=== PATIENT | female | born 1990 | race Caucasian/White ===

== ENCOUNTER 2018-02-16 10:20 | Inpatient (IN) | payer OTHER ==
[~2018-02-16] VITALS: Ht 172.7 cm; Wt 83.0 kg
[2018-02-17] MEDS ORDERED: PNV 29-1 TABLE1 EACH PO (06:41)
[2018-02-17] MEDS ORDERED: LEVOTHYROXINE0.5 GM PO (06:41)
--- NOTE | 2018-02-18 08:54 | PR ---
[facility] [address] [facility] [place], [place] [address] Signed PP Progress Notes Datetime Report Generated by CPN: 02/18/2018 08:54 SUBJECTIVE: [id number] Pain: Within normal limits Vital Signs: [id number] Vital Signs: Reviewed; Within Normal Limits EXAM: [id number] Cardiovascular: Not Done Respiratory: Not Done Abdomen/Uterus: Abnormal Lochia: Normal Vulva/Perineum: Not Done Breasts: Not Done CVA Tenderness: Not Done Extremities: Normal Incision: Not Applicable Progress: Normal Exam Comments: Fundus firm, NT @ U-1. H/H 12.2/35.2, WBC 16.4, 169k IMPRESSION/PLAN/PROCEDURES: [id number] Impression: Normal progression Plan: Discharge Procedures: None Progress Notes: Doing well. She desires D/C. Signing Physician: Yenni Mercado MD Copies: ~ *Electronically Signed* 02/18/18 0854 YENNI MERCADO MD PATIENT NAME: REGINO BATISTA PROGRESS NOTE DATE OF : 89 PHYSICIAN: YENNI MERCADO MD RPT #: [id number] REPORT IS CONFIDENTIAL AND NOT TO BE RELEASED WITHOUT AUTHORIZATION
== END 2018-02-18 15:00 | disposition home or self-care (01) | DRG 775 ==
LOC: FBC 02-17 05:12
PROVIDERS: ADMIT Obstetrics & Gynecology
PROC: 10E0XZZ Delivery of Products of Conception, External Approach (ICD-10-PCS; principal; 2018-02-17)
PROC: 10907ZC Drainage of Amniotic Fluid, Therapeutic from Products of Conception, Via Natural or Artificial Opening (ICD-10-PCS; 2018-02-17)
PROC: 3E0P7VZ Introduction of Hormone into Female Reproductive, Via Natural or Artificial Opening (ICD-10-PCS; 2018-02-17)
PROC: 0W8NXZZ Division of Female Perineum, External Approach (ICD-10-PCS; 2018-02-17)
DX: O48.0 Post-term pregnancy (principal); O99.284 Endocrine, nutritional and metabolic diseases complicating childbirth; E03.9 Hypothyroidism, unspecified; O75.89 Other specified complications of labor and delivery; O69.1XX0 Labor and delivery complicated by cord around neck, with compression, not applicable or unspecified; O66.0 Obstructed labor due to shoulder dystocia; Z79.899 Other long term (current) drug therapy; Z3A.40 40 weeks gestation of pregnancy; Z37.0 Single live birth
CPT/HCPCS: 36415; 85027; J2210; J2550; J2590; J3010; J7120

== ENCOUNTER 2019-07-05 06:45 | Day surgery (SDC) | payer OTHER ==
[~2019-07-05] VITALS: Ht 172.7 cm; Wt 69.4 kg
--- NOTE | ~2019-07-05 | OR ---
[facility] [address] [facility] [place], [place] [address] Draft DATE OF OPERATION: 07/05/2019 SURGEON: Yenni Mercado MD PREOPERATIVE DIAGNOSIS: Missed . POSTOPERATIVE DIAGNOSIS: Missed , pending pathology. PROCEDURE: Suction D and C. ANESTHESIA: General LMA. ESTIMATED BLOOD LOSS: 50 mL. DRAINS: None. INDICATIONS AND FINDINGS: The patient is a 28-year-old female, 2, para 1, who is 11 weeks 3 days by prior ultrasound, but was found to have a missed on her ultrasound yesterday and with a fetus measuring 8 weeks 5 days. After discussion of her options, she elected to proceed with D and C. At the time of surgery, her uterus was 10-12 week size. It was retroverted, soft. The cervix was closed. There was a large amount of tissue within the uterus. DESCRIPTION OF PROCEDURE: The patient was prepped and draped in the dorsal lithotomy position. An open-sided speculum was placed and the posterior lip of the cervix was grasped with a single-tooth tenaculum. The endocervical canal was then dilated to a #10 dilator. At that point, a kidney stone forceps was introduced with removal of some of the placental type tissue. The #10 curved suction curette was then introduced and suction removed some of the tissue, but when this was extracted, there was some tissue presenting at the os as well. The kidney forceps was reintroduced and a large amount of tissue was then removed just with the use of forceps. Suction curettage was then repeated again with a small amount of tissue found. Sharp curettage was then done with a minimal amount of tissue found. PATIENT NAME: REGINO BATISTA OPERATIVE REPORT DATE OF : 89 REPORT #: [id number] PHYSICIAN: YENNI MERCADO MD PCP: YENNI MERCADO MD REPORT IS CONFIDENTIAL AND NOT TO BE RELEASED WITHOUT AUTHORIZATION [facility] [address] [facility] [place] [place] [address] Draft The cavity also felt smooth and contracted. At that point, the procedure was terminated. She was having minimal bleeding from the cervix. She was bleeding however from the left posterior tenaculum imani. This did not respond to pressure and a oqmqaf-[id number]-qowfe suture of 0 chromic was placed with good hemostasis. At this point, the procedure was terminated. She was taken to the recovery room in good condition. All sponge and needle counts were correct. MD DEVON Peres/MODL /[id number] Copies: ~ PATIENT NAME: REGINO BATISTA OPERATIVE REPORT DATE OF : 89 REPORT #: [id number] PHYSICIAN: YENNI MERCADO MD PCP: YENNI MERCADO MD REPORT IS CONFIDENTIAL AND NOT TO BE RELEASED WITHOUT AUTHORIZATION
[~2019-07-05 06:45] MED LIST: LEVOTHYROXINE0.5 GM PO; PNV 29-1 TABLE1 EACH PO
--- NOTE | 2019-07-05 08:36 | NUR ---
CRISSY 0830: PT REQUESTS TO GET UP AND USE THE RESTROOM. SHE IS HELPED UP OOB WITH STANDBY ASSIST TO THE RESTROOM AND BACK TO HER ROOM.
--- NOTE | 2019-07-05 10:07 | NUR ---
07/05/19 Katty Whyte 0487 PT ARRIVED IN PACU NON RESPONSIVE TO VERBAL/TACTILE STIMULI WITH OPA IN PLACE. CHIN LIFT HELD BY RN. 0946 PT REACTIVE. OPA REMOVED. DR AT BEDSIDE. 1000 OXYGEN REMOVED. SATS 100% ON RA. TAKING SIPS OF WATER.
--- NOTE | 2019-07-05 10:21 | NUR ---
PT IS BACK TO DS FROM PACU. SHE IS AWAKE, SIGNIFICANT OTHER AT THE BEDSIDE. WATER ON BEDSIDE TABLE. CALL LIGHT WITHIN REACH. NO ADDITIONAL NEEDS AT THIS TIME. PT DENIES WANTING ANYTHING TO EAT AT THIS TIME.
--- NOTE | 2019-07-05 11:39 | NUR ---
PT IS DENYING PAIN, SITTING UP AWAKE. STATES SHE JUST FEELS REALLY TIRED. DC CRITERIA IS DISCUSSED WITH THE PT. SHE IS AGREEABLE TO CORNEL. SHE IS EDUCATED TO HIT HER CALL LIGHT IF SHE NEEDS TO USE THE RESTROOM. CALL LIGHT WITHIN REACH. TOLERATING SIPS OF WATER. NO ADDITIONAL NEEDS.
--- NOTE | 2019-07-05 12:01 | NUR ---
CRISSY 1145: PT IS UP OOB TO THE BATHROOM WITH STANDBY ASSIST. SHE IS ABLE TO VOID 150ML'S OF URINE. SHE AMBULATES HERSELF BACK TO HER ROOM. SHE WOULD LIKE TO GO HOME AT THIS TIME.
--- NOTE | 2019-07-05 12:02 | NUR ---
CRISSY 1155: PT HAS MET ALL DC CRITERIA AT THIS TIME. SHE AND HER SO, CARLY, ARE GIVEN VERBAL DC INSTRUCTIONS, THEY BOTH VERBALIZE UNDERSTANDING. ALL QUESTIONS ARE ASKED AND ANSWERED. SHE IS EDUCATED ON HOW BEST TO DRESS HERSELF AND TO OPEN HER CURTAIN WHEN READY. SHE IS TAKEN OUT TO VEHICLE BY VOLUNTEER NAOMY.
--- NOTE | 2019-07-06 14:26 | PATH ---
[facility] [address] [place], [place] [address] Signed SPECIMEN(S): A PRODUCTS OF CONCEPTION SPECIMEN SOURCE: A. PRODUCTS OF CONCEPTION CLINICAL HISTORY: Missed AB. FINAL PATHOLOGIC DIAGNOSIS: Uterine contents: - Products of conception. LJA:cml:C2NR MICROSCOPIC EXAMINATION: Histologic sections of all submitted blocks are examined by light microscopy. These findings, together with the gross examination, support the pathologic diagnosis. GROSS DESCRIPTION: The specimen, labeled "LE, products of conception," is received fresh in a vacuum container and consists of irregular shaped membranous and hemorrhagic tissue fragments that aggregate measure 5.5 x 4.2 x 1.2 cm. No tissue is grossly identified. The specimen was not in formalin to 3:45 PM. Jumpbasting Armhole Baster sections are submitted in cassette (A1). JS (under the direct supervision of a pathologist) The Gross Description was prepared using a voice recognition system. The report was reviewed for accuracy; however, sound-alike word errors, addition and/or deletions may occur. If there is any question about this report, please contact Client Services. PERFORMING LABORATORY: The technical component was performed by [facility], [address] [place] [address] (Freezing Room Worker: Adelina Hinton MD; CLIA# [id number]). [facility], [address] [address] (Freezing Room Worker: Adrian Recio MD; CLIA# [id number]). Diagnostician: Adrian Recio MD Pathologist Electronically Signed 07/06/2019 PATIENT NAME: REGINO BATISTA PATHOLOGY DATE OF : 89 REPORT #: [id number] PHYSICIAN: KATHY PATHOLOGY PCP: KASIE HILTON MD REPORT IS CONFIDENTIAL AND NOT TO BE RELEASED WITHOUT AUTHORIZATION [address] [address] Signed Copies: ~ PATIENT NAME: REGINO BATISTA PATHOLOGY DATE OF : 89 REPORT #: [id number] PHYSICIAN: KATHY PATHOLOGY PCP: KASIE HILTON MD REPORT IS CONFIDENTIAL AND NOT TO BE RELEASED WITHOUT AUTHORIZATION
== END 2019-07-05 12:00 | disposition home or self-care (01) ==
LOC: DS 06:45
PROVIDERS: Obstetrics & Gynecology
PROC: 10D17ZZ Extraction of Products of Conception, Retained, Via Natural or Artificial Opening (ICD-10-PCS; principal; 2019-07-05 08:00)
DX: O02.1 Missed abortion (principal); E03.9 Hypothyroidism, unspecified; Z79.899 Other long term (current) drug therapy
CPT/HCPCS: J1100; J1885; J2250; J2405; J2590; J2704; J2765; J3010; J7120

== ENCOUNTER 2020-04-08 05:03 | Inpatient (IN) | payer OTHER ==
--- NOTE | 2020-04-08 08:44 | PR ---
[facility] [address] [facility] [place], [place] [address] Signed Progress Notes IP Datetime Report Generated by CPN: 04/08/2020 08:44 PROGRESS NOTES: [id number] Impression: Reassuring heart rate Procedures: Artificial ROM; Sterile Vag Exam Plan: Continue present management Informed Consent Obtain: Vaginal Delivery; Induction of Labor; Risks, Benefits and Alternatives Discussed VITAL SIGNS: [id number] Vital Signs: Reviewed; Within Normal Limits EXAM: [id number] Dilatation: 4.0 Effacement: 70 Station: -2 Uterine Contractions: irregular MEMBRANES: [id number] Membrane Status: Intact ROM Note: AROM with moderate clear fluid Comments: Doing well. Will continue. Fetus A: [id number] FHR Baseline: 140 Variability: Moderate 6-25bpm Accelerations: 15X15 Decelerations: None FHR Category: Category I Presentation: Vertex Comments on Fetus A: No evidence of metabolic acidosis Fetus B: [id number] Signing Physician: Yenni Mercado MD Copies: ~ *Electronically Signed* 04/08/20 0844 YENNI MERCADO MD PATIENT NAME: REGINO BATISTA PROGRESS NOTE DATE OF : 89 PHYSICIAN: YENNI MERCADO MD RPT #: [id number] REPORT IS CONFIDENTIAL AND NOT TO BE RELEASED WITHOUT AUTHORIZATION
--- NOTE | 2020-04-09 08:13 | PR ---
[facility] [address] [facility] [place], [place] [address] Signed PP Progress Notes Datetime Report Generated by JOSE: 04/09/2020 08:13 SUBJECTIVE: [id number] Pain: Within normal limits Vital Signs: [id number] Vital Signs: Reviewed; Within Normal Limits EXAM: [id number] Cardiovascular: Not Done Respiratory: Not Done Abdomen/Uterus: Abnormal Lochia: Normal Vulva/Perineum: Not Done Breasts: Not Done CVA Tenderness: Not Done Extremities: Normal Incision: Not Applicable Progress: Normal Exam Comments: Fundus firm, NT @ U-2. H/H 11.4/34.2, WBC 17.6, plat 170k IMPRESSION/PLAN/PROCEDURES: [id number] Impression: Normal progression Plan: Continue present management Progress Notes: Doing well. Continue present care. Signing Physician: Yenni Mercado MD Copies: ~ *Electronically Signed* 04/09/20812 YENNI MERCADO MD PATIENT NAME: REGINO BATISTA PROGRESS NOTE DATE OF : 89 PHYSICIAN: YENNI MERCADO MD RPT #: [id number] REPORT IS CONFIDENTIAL AND NOT TO BE RELEASED WITHOUT AUTHORIZATION
--- NOTE | 2020-04-10 09:49 | PR ---
[facility] [address] [facility] [place] [address] Signed PP Progress Notes Datetime Report Generated by CPRenetta: 04/10/2020 09:48 SUBJECTIVE: [id number] Pain: Within normal limits Vital Signs: [id number] Vital Signs: Reviewed; Within Normal Limits EXAM: [id number] Cardiovascular: Not Done Respiratory: Not Done Abdomen/Uterus: Abnormal Lochia: Normal Vulva/Perineum: Not Done Breasts: Not Done CVA Tenderness: Not Done Extremities: Normal Incision: Not Applicable Progress: Normal Exam Comments: Fundus firm, NT @ U-2. IMPRESSION/PLAN/PROCEDURES: [id number] Impression: Normal progression Plan: Discharge Procedures: None Progress Notes: Doing well. She is ready for D/C. Signing Physician: Yenni Mercado MD Copies: ~ *Electronically Signed* 04/10/20 0948 YENNI MERCADO MD PATIENT NAME: REGINO BATISTA PROGRESS NOTE DATE OF : 89 PHYSICIAN: YENNI MERCADO MD RPT #: [id number] REPORT IS CONFIDENTIAL AND NOT TO BE RELEASED WITHOUT AUTHORIZATION
== END 2020-04-10 15:06 | disposition home or self-care (01) | DRG 807 ==
LOC: FBC 05:03
PROVIDERS: ADMIT Obstetrics & Gynecology
PROC: 10E0XZZ Delivery of Products of Conception, External Approach (ICD-10-PCS; principal; 2020-04-08)
PROC: 0UQMXZZ Repair Vulva, External Approach (ICD-10-PCS; 2020-04-08)
PROC: 10907ZC Drainage of Amniotic Fluid, Therapeutic from Products of Conception, Via Natural or Artificial Opening (ICD-10-PCS; 2020-04-08)
DX: O99.824 Streptococcus B carrier state complicating childbirth (principal); Z37.0 Single live birth; Z3A.39 39 weeks gestation of pregnancy; O66.0 Obstructed labor due to shoulder dystocia; O99.284 Endocrine, nutritional and metabolic diseases complicating childbirth; E03.9 Hypothyroidism, unspecified; O71.82 Other specified trauma to perineum and vulva; Z79.899 Other long term (current) drug therapy
CPT/HCPCS: 36415; 85027; A9270; J2540

== ENCOUNTER 2021-12-01 11:17 | Emergency (ER) | payer OTHER ==
[~2021-12-01] VITALS: Ht 172.7 cm; Wt 69.4 kg
== END 2021-12-01 13:55 | disposition home or self-care (01) ==
LOC: ED 11:17
DX: O20.0 Threatened abortion (principal); Z79.899 Other long term (current) drug therapy; Z3A.13 13 weeks gestation of pregnancy
CPT/HCPCS: 36415; 76801; 81001; 84702; 85025; 99284-25

== ENCOUNTER 2022-05-28 23:50 | Inpatient (IN) | payer OTHER ==
[~2022-05-28] VITALS: Ht 172.7 cm; Wt 76.7 kg
--- NOTE | 2022-05-29 08:54 | PR ---
[facility] [address] [facility] [place], [place] [address] Signed Progress Notes IP Datetime Report Generated by CPN: 05/29/2022 08:54 PROGRESS NOTES: [id number] Impression: Normal Progression of Labor Procedures: Artificial ROM; Sterile Vag Exam Plan: Continue Present Management VITAL SIGNS: [id number] Vital Signs: Reviewed; Within Normal Limits EXAM: [id number] Dilatation: 4.0 Effacement: 80 Station: -2 Contractions: q 2 to 3 min MEMBRANES: [id number] Comments: Progressing after cytotec. Will continue. FETUS A: [id number] FHR Baseline: 150 Variability: Moderate 6-25bpm Accelerations: 15X15 Decelerations: None FHR Category: Category I Presentation: Vertex Comments on Fetus A: No evidence of metabolic acidosis FETUS B: [id number] Signing Physician: Yenni Mercado MD Copies: ~ *Electronically Signed* 05/29/22853 YENNI MERCADO MD PATIENT NAME: REGINO BATISTA PROGRESS NOTE DATE OF : 89 PHYSICIAN: YENNI MERCADO MD RPT #: [id number] REPORT IS CONFIDENTIAL AND NOT TO BE RELEASED WITHOUT AUTHORIZATION
--- NOTE | 2022-05-30 08:43 | PR ---
[facility] [address] [facility] [place], [place] [address] Signed PP Progress Notes Datetime Report Generated by CPN: 05/30/2022 08:43 SUBJECTIVE: [id number] Pain: Within Normal Limits Nausea/Vomiting: Denies Vital Signs: [id number] Vital Signs: Reviewed; Within Normal Limits EXAM: Ongoing Cardiovascular: Not Done Respiratory: Not Done Abdomen/Uterus: Abnormal Lochia: Normal Vulva/Perineum: Not Done Breasts: Not Done CVA Tenderness: Not Done Extremities: Normal Incision: Not Applicable Progress: Normal Exam Comments: Fundus firm, NT @ U-1. H/H 11.4/33.9, WBC 14, plat 135k IMPRESSION/PLAN/PROCEDURES: [id number] Impression: Normal Progression Plan: Discharge Procedures: None Progress Notes: Doing well. She is ready for D/C. Signing Physician: Yenni Mercado MD Copies: ~ *Electronically Signed* 05/30/22 0843 YENNI MERCADO MD PATIENT NAME: IRA BATISTAVANE LAWRENCE PROGRESS NOTE DATE OF : 89 PHYSICIAN: YENNI MERCADO MD RPT #: [id number] REPORT IS CONFIDENTIAL AND NOT TO BE RELEASED WITHOUT AUTHORIZATION
== END 2022-05-30 13:45 | disposition home or self-care (01) | DRG 807 ==
LOC: FBC 05-29 00:01
PROVIDERS: ADMIT Obstetrics & Gynecology; ATTEND Obstetrics & Gynecology
PROC: 10E0XZZ Delivery of Products of Conception, External Approach (ICD-10-PCS; principal; 2022-05-29)
PROC: 10907ZC Drainage of Amniotic Fluid, Therapeutic from Products of Conception, Via Natural or Artificial Opening (ICD-10-PCS; 2022-05-29)
PROC: 3E0R3BZ Introduction of Anesthetic Agent into Spinal Canal, Percutaneous Approach (ICD-10-PCS; 2022-05-29)
PROC: 00HU33Z Insertion of Infusion Device into Spinal Canal, Percutaneous Approach (ICD-10-PCS; 2022-05-29)
DX: O66.0 Obstructed labor due to shoulder dystocia (principal); Z37.0 Single live birth; Z20.822 Contact with and (suspected) exposure to COVID-19; O99.824 Streptococcus B carrier state complicating childbirth; O99.284 Endocrine, nutritional and metabolic diseases complicating childbirth; E03.9 Hypothyroidism, unspecified; Z79.899 Other long term (current) drug therapy; Z3A.39 39 weeks gestation of pregnancy
CPT/HCPCS: 01960; 36415; 85027; 86850; 86900; 86901; 87502; A9270; J2210; J2405; J2540; J2590; U0003

== ENCOUNTER 2024-04-13 06:10 | Emergency (ER) | payer OTHER ==
[~2024-04-13] VITALS: Ht 182.9 cm; Wt 66.3 kg
[2024-04-13] MEDS ORDERED: ondansetron HCL 4 MG/2 ML VIAL IV ONE (06:30)
[2024-04-13] MEDS ORDERED: DIPHENOXYLATE/ATROPINE 1 EA TAB PO ONE (06:30)
[2024-04-13] MEDS ORDERED: LACTATED RINGER'S 1,000 ML IV ONE (06:30)
[2024-04-13 06:32] LABS: BASOPHILS 0.2 % (0-2); EOSINOPHILS 0.4 % (0-6); HEMATOCRIT 41.4 % (35.0-50.0); HEMOGLOBIN 14.3 g/dL (12.0-18.0); LYMPHOCYTES 9.3 % (24-44); MCH 30.3 (27-36); MCHC 34.5 g/dl (30-36); MCV 87.9 fl (81-99); MONOCYTES 8.9 % (0-12); NEUTROPHILS 81.2 % (39-80); PLATELET COUNT 227 K/uL (140-440); RBC 4.71 M/ul (4.3-5.7); RDW 12.9 (10.5-15.0)
[2024-04-13 06:41] LABS: ALBUMIN 3.6 g/dL (3.4-5.0); ALBUMIN/GLOBULIN RATIO 1.06 (1.1-2.4); ANION GAP 11.5 (7-21); BILIRUBIN, TOTAL 0.3 ng/dL (0.2-1.0); BUN/CREATININE RATIO 2.38 (6.0-28.6); CALCIUM 8.8 mg/dL (8.5-10.1); CREATININE, SERUM 0.84 mg/dL (0.55-1.02); MAGNESIUM 1.8 mg/dL (1.8-2.4); POTASSIUM 3.5 mmol/L (3.5-5.1)
[2024-04-13 07:26] LABS: BILIRUBIN, URINE NEGATIVE (negative); BLOOD/HGB, URINE LARGE (Negative); KETONE, URINE NEGATIVE (Negative); LEUK ESTERASE, URINE NEGATIVE (negative); NITRITE, URINE NEGATIVE (negative); PH, URINE 6.5 (5-7)
[2024-04-13 07:34] LABS: BACTERIA, URINE RARE /hpf (negative); CASTS, URINE NONE SEEN \\lpf; COLLECTION TYPE, URINE CLEAN CATCH; CRYSTALS, URINE NONE SEEN (0-1+); EPITHELIAL CELLS, URINE SQUAMOUS 2+ /lpf (0-1+); RED BLOOD CELLS, URINE 21-40 /hpf (0-5); REFLEX CULTURE, URINE No (No)
[2024-04-13] MEDS ORDERED: ONDANSETRON ODT8 MG PO (07:42)
[2024-04-13] MEDS ORDERED: LOMOTIL TABLET1 EACH PO (07:42)
[2024-04-13 07:49] VITALS: BP 107/66
== END 2024-04-13 07:49 | disposition home or self-care (01) ==
LOC: ED 06:10
PROVIDERS: Family Medicine
DX: K52.9 Noninfective gastroenteritis and colitis, unspecified (principal); Z79.899 Other long term (current) drug therapy
CPT/HCPCS: 36415; 80053; 81001; 83735; 84703; 85025; 96374; 99284-25; J2405; J7121